=== PATIENT | male | born 1975 | race Caucasian/White ===

== ENCOUNTER → 2023-11-29 | Outpatient (CLI) | payer OTHER, SELFPAY ==
[2023-11-29 17:11] LABS: Absolute Lymphocyte Count 2.84 X10^3/uL (0.83-4.51); Absolute Neutrophil Count 4.8 X10^3/uL (2.0-7.7); Basophil% 1.2 % (0-1); Eosinophil# 0.08 X10^3/uL; Eosinophils% 0.9 % (0-5); Hematocrit 39.9 % (40-54); Hemoglobin 13.3 g/dL (13.0-16.5); Lymphocyte # 2.84 X10^3/ul (0.83-4.51); Lymphocyte % 33.4 % (19-41); Mean Corp Hgb Conc 33.3 g/dL (32-36); Mean Corpuscular Hgb 30.6 pg (27.0-32.0); Mean Corpuscular Volume 91.7 fL (80-94); Mean Platelet Vol. 9.7 fl (6.2-12.0); Monocyte# 0.63 X10^3/uL; Monocyte% 7.4 % (0-10); NRBC Flagged by Analyzer 0 % (0-5); Neutrophil # 4.84 X10^3/uL (2.7-7.7); Neutrophil % 56.9 % (47-70); Platelet Count 291 K/mm3 (150-450); RBC Distribution Width CV 13.1 % (11.6-14.6); Red Blood Count 4.35 M/mm3 (4.6-6.2); White Blood Count 8.5 K/mm3 (4.4-11.0)
[2023-11-29 17:28] LABS: Hemoglobin A1c 5.7 % (3.8-5.6)
[2023-11-29 17:32] LABS: ALB/GLOB Ratio 0.9 RATIO (0.9-2.4); AST(SGOT) 16 U/L (15-37); Alanine Aminotransfer ALT/SGPT 31 U/L (16-61); Albumin, Serum 3.7 g/dL (3.2-5.0); Alkaline Phosphatase 86 U/L (45-117); Anion Gap 7 (5-15); BUN 14 mg/dL (7-18); BUN/Creat Ratio 15.3 RATIO (10-20); Calcium,Total 9.2 mg/dL (8.5-10.1); Chloride 107 mmol/L (98-107); Cholesterol 181 mg/dL (200); Creatinine, Serum 0.91 mg/dL (0.70-1.30); EST Glomerular Filtration Rate 94 mL/min (>60); Est Glom Filt Rate - Afr Amer 114 mL/min (>60); Globulin 3.9 g/dL (2.2-4.2); Glucose 81 mg/dL (74-106); High Density Lipoprotein 36 mg/dL; Potassium 3.9 mmol/L (3.5-5.1); Protein, Total 7.6 g/dL (6.4-8.2); Sodium Level 140 mmol/L (136-145); Triglycerides 97 mg/dL; Very Low Density Lipoprotein 19 mg/dL (5-40)
== END | disposition home or self-care (01) ==
LOC: VSLAB 13:50
PROVIDERS: PCP Nurse Practitioner Family; Visit Provider Nurse Practitioner Family
DX: Z00.00 Encounter for general adult medical examination without abnormal findings (principal)
CPT/HCPCS: 36415; 80053; 80061; 83036; 84443; 85025

== ENCOUNTER 2024-10-16 10:18 | Emergency (ER) | payer OTHER, SELFPAY ==
[2024-10-16] VITALS (9 sets, daily range): BP systolic 118–142; BP diastolic 78–103; PULSE 49–89; RESP 14–18; TEMP 37–37.1; O2SAT 98–100; BMI 25.3
--- NOTE | 2024-10-16 12:20 | RAD_ITS ---
PROCEDURE: CHEST PA AND LATERAL 10/16/2024 REASON FOR EXAM: CHEST PAIN TECHNIQUE: Procedure Code: RADCXR Modality: DX Procedure: CHEST PA AND LATERAL COMPARISON: None FINDINGS: Hardware: EKG leads Heart: Normal Mediastinum: Normal Lungs: Clear Bones: The bones are unremarkable. RAD/Chest PA and Lateral IMPRESSION: No acute cardiopulmonary process. [id number]
--- NOTE | 2024-10-16 12:21 | EX.ED.DYSGE1 ---
HPI History of Present Illness Chief Complaint: General Illness Narrative Narrative: Patient is a 49-year-old male presenting to emergency department for intermittent chest tightness, lightheadedness and high heart rate intermittently. Patient has no significant past medical history. No family history of sudden cardiac . Patient states he has prediabetic. No hypertension or hyperlipidemia history. Patient states that for the past month with activity he develops lightheadedness and tingling in his arms and legs. States yesterday he was mopping the bathroom and developed lightheadedness and some chest tightness. States he was also diaphoretic. States that he wore his daughters Apple watch today and noticed that anytime he stood up or exerted himself his heart rate went up to 140-150. At rest his normal sinus. Patient denies any shortness of breath at rest. Denies any recent fever, chills, cough, congestion, sore throat. PFSH PFS Medical History No active medical problems Home Medications ?Medication ?Instructions ?Recorded ?Last Taken ?Type dexamethasone 6 mg tablet 6 mg PO DAILY #5 tabs 10/06/23 Unknown Rx Allergy/AdvReac Type Severity Reaction Status Date / Time No Known Allergies Allergy Verified 10/16/24 10:53 Surgical History No significant past surgical history Social History housing: house Smoking Status: Current every day smoker tobacco type: cigarettes alcohol intake: never substance use type: does not use ROS ROS ED ROS Narrative See HPI EXAM Physical Exam Narrative Exam Narrative: Vital signs: Reviewed General: Alert and oriented. No acute distress HEENT: Head is normocephalic and atraumatic, sinuses nontender, pupils equal round and reactive. Nares are patent. Oropharynx and throat exams normal. Neck: Supple without lymphadenopathy nontender Cardiovascular: Regular rate and rhythm, no murmurs. No rubs or gallops. Normal S1 and S2. Equal peripheral pulses throughout. Respiratory: Clear to auscultation bilaterally. No wheezes, rales, rhonchi Abdominal: Soft and nontender. Normal bowel sounds. No guarding or rebound. Nonsurgical abdomen Extremities: No tenderness. No bruising. Normal range of motion. Normal sensation. Skin: No rash or redness. Neurological: Cranial nerves II through XII are grossly intact. Normal strength and sensation. Normal cerebellar function The rest of the physical exam is unremarkable Const Vital Signs: 10/16/24 10:19 10/16/24 10:46 10/16/24 11:18 Temperature 98.6 F Temperature Source Oral Pulse Rate 64 57 L Respiratory Rate 18 18 Respiratory Effort Normal Non-Labored Respiratory Pattern Normal Blood Pressure 140/94 H 118/102 H Blood Pressure Mean 109 107 Pulse Ox 100 98 Oxygen Delivery Method Room Air 10/16/24 12:00 10/16/24 13:00 10/16/24 14:00 Temperature Temperature Source Pulse Rate 65 53 L 80 Respiratory Rate 18 Respiratory Effort Respiratory Pattern Blood Pressure 131/88 H 138/94 H 134/103 H Blood Pressure Mean 102 108 113 Pulse Ox 98 100 100 Oxygen Delivery Method 10/16/24 15:00 10/16/24 16:00 10/16/24 17:00 Temperature Temperature Source Pulse Rate 49 L 80 89 Respiratory Rate 16 14 Respiratory Effort Respiratory Pattern Blood Pressure 136/90 H 142/80 H 137/96 H Blood Pressure Mean 105 100 109 Pulse Ox 100 98 98 Oxygen Delivery Method Room Air MDM MDM MDM Narrative Medical decision making narrative: Patient is a 49-year-old male presenting emergency department for lightheadedness, chest tightness and intermittent high heart rate. Patient was seen and examined. Vitals are stable. Patient resting bed comfortably no acute distress. EKG shows sinus bradycardia at a rate of 59. No ischemic changes noted. No ST elevation or depression. No abnormal T wave inversions. No dysrhythmia. Chest x-ray, troponin, labs ordered. 324 mg chewable aspirin given. CBC with no leukocytosis and normal hemoglobin. BMP with no significant abnormalities. TSH and magnesium within normal limits. Troponins of 6, 9, less than 6. No significant delta change. Heart score of 4. I did have concern about the patient given his description of the chest pain but really any activity. He did report during his history that he feels a sense of doom. Given this and his moderate heart score I discussed admission with the patient. I did highly recommended for further cardiac workup. Patient states he does not want to stay. He does understand the risks and benefits of leaving including morbidity and mortality. Holter monitor was ordered and placed here for 48 hours given the episodes of high heart rate. Instructed to bring it back in 48 hours. Instructed to return to the ED with any new or worsening symptoms which were discussed extensively at bedside. Patient discharged from the Emergency Department. Instructed to follow-up with primary care doctor soon as possible. Clinical impression Lightheadedness Chest tightness Palpitations History & Record Review Discussion w/independent historian: Patient Lab Data Labs: Laboratory Results - last 24 hr 10/16/24 10/16/24 10/16/24 10:35 12:39 14:27 WBC 10.0 RBC 4.50 L Hgb 14.5 Hct 41.6 MCV 92.4 MCH 32.2 H MCHC 34.9 RDW Std Deviation 44.6 H RDW Coeff of Josi 13.1 Plt Count 269 MPV 10.0 Immature Gran % (Auto) 0.200 Neut % (Auto) 66.2 Lymph % (Auto) 26.2 [place] % (Auto) 6.0 Eos % (Auto) 0.5 Baso % (Auto) 0.9 Absolute Neuts (auto) 6.6 Absolute Lymphs (auto) 2.61 Nucleated RBC % 0 Sodium 138 Potassium 3.8 Chloride 103 Carbon Dioxide 24.8 Anion Gap 10 BUN 12 Creatinine 0.93 Estim Creat Clear Calc 106.62 Est GFR (MDRD) Non-Af 101 BUN/Creatinine Ratio 12.6 Glucose 97 Calcium 9.1 Magnesium 2.3 H Troponin T High Sens 6 Troponin T Hi Sens 2 Hr 9 Troponin T Hi Sens 4Hr < 6 TSH 1.900 Radiography Diagnostic Testing: Clinical Impression(s) from Imaging Studies Chest X-Ray 10/16/24 12:20 IMPRESSION: No acute cardiopulmonary process. Reading [id number] Triage Chief Complaint: General Illness ED Provider: Brooke Teague Dx/Rx/DC Orders Clinical Impression: Chest tightness, Episodic lightheadedness, Heart palpitations Instructions: ED About Arrhythmias, ED Chest Pain, Uncertain Cause, ED Heart Palpitations Prescriptions: No Action dexamethasone 6 mg tablet 6 mg PO DAILY Qty: 5 0RF Primary Care Provider: Luz Maria Sanchez Referrals: Luz Maria Sanchez, [employer] [Primary Care Provider] - 1 Day Activity Restrictions/Additional Instructions: I recommended you be admitted to the hospital for further heart workup. You declined at this time. Do recommend that she do return immediately with any worsening symptoms that you are currently having or any new symptoms. Recommend that you follow-up with your primary care doctor for possible outpatient stress test. Print Language: Telugu Disposition Disposition: Home, Self Care
--- NOTE | 2024-10-16 12:30 | EKG12_ITS ---
Test Reason : CHEST OTHER Blood Pressure : */* mmHG Vent. Rate : 59 BPM Atrial Rate : 59 BPM P-R Int : 144 ms QRS Dur : 90 ms QT Int : 402 ms P-R-T Axes : 50 26 38 degrees QTcB Int : 397 ms Sinus bradycardia Otherwise normal ECG Confirmed by Robby Lopez ([id number]), society editor KATRINA MCCANN ([id number]) on 10/17/2024 8:19:15 AM Referred By: AK/ER Confirmed By: Robby Lopez
[2024-10-16 12:36] LABS: Hematocrit 41.6 % (40-54); Hemoglobin 14.5 g/dL (13.0-16.5); Immature Granulocytes Count 0.020 X10^3/uL (0.0-0.0); Mean Corp Hgb Conc 34.9 g/dL (32-36); Mean Corpuscular Volume 92.4 fL (80-94); Mean Platelet Vol. 10.0 fl (6.2-12.0); NRBC Flagged by Analyzer 0 % (0-5); Platelet Count 269 K/mm3 (150-450); RBC Distribution Width CV 13.1 % (11.6-14.6); RBC Distribution Width SD 44.6 fl (35.1-43.9); Red Blood Count 4.50 M/mm3 (4.6-6.2); White Blood Count 10.0 K/mm3 (4.4-11.0)
[2024-10-16 13:12] LABS: Anion Gap 10 (5-15); BUN 12 mg/dL (4-19); BUN/Creat Ratio 12.6 RATIO (10-20); Calcium,Total 9.1 mg/dL (7.6-11.0); Carbon Dioxide 24.8 mmol/L (21.0-32.0); Chloride 103 mmol/L (98-108); Estimated Creatinine Clearance 106.62 ml/min (50-250); Glucose 97 mg/dL (70-99); Magnesium 2.3 mg/dL (1.5-2.2); Potassium 3.8 mmol/L (3.3-5.1); Troponin T High Sensitivity 6 ng/L (<=22)
[2024-10-16 13:38] LABS: Troponin T High Sens 2 HR 9 ng/L (<=22)
[2024-10-16 15:07] LABS: Troponin T High Sens 4 HR < 6 ng/L (<=22)
== END 2024-10-16 17:11 | disposition home or self-care (01) ==
PROVIDERS: Emergency Provider Student in an Organized Health Care Education/Training Program; PCP Nurse Practitioner Family; Visit Provider Student in an Organized Health Care Education/Training Program
DX: R07.89 Other chest pain (principal); R00.2 Palpitations; R00.1 Bradycardia, unspecified; R42 Dizziness and giddiness; F17.210 Nicotine dependence, cigarettes, uncomplicated
CPT/HCPCS: 71046; 80048; 83735; 84443; 84484; 85025; 93005; 99283; A4216

== ENCOUNTER → 2024-10-16 | Outpatient (CLI) | payer OTHER, SELFPAY | END | disposition home or self-care (01) | LOC: PSN 16:37 | PROVIDERS: PCP Nurse Practitioner Family; Visit Provider Student in an Organized Health Care Education/Training Program | DX: R07.9 Chest pain, unspecified (principal) | CPT/HCPCS: 93225; 93226 ==

== ENCOUNTER → 2024-12-06 | Outpatient (CLI) | payer OTHER, SELFPAY | END | disposition home or self-care (01) | LOC: CVS 12:55 | PROVIDERS: PCP Nurse Practitioner Family | DX: R07.9 Chest pain, unspecified (principal) | CPT/HCPCS: 93017; 93350 ==